=== PATIENT | female | born 1940 | race Caucasian/White ===

== ENCOUNTER 2024-02-19 10:46 | Outpatient (CLI) | payer MEDICARE, OTHER, SELFPAY | END 2024-02-19 10:47 | disposition home or self-care (01) | LOC: NFLDUCREF 10:47 | PROVIDERS: PCP Family Medicine; Visit Provider Physician Assistant | DX: R10.9 Unspecified abdominal pain (principal); M54.9 Dorsalgia, unspecified | CPT/HCPCS: 87086 ==